=== PATIENT | male | born 1995 | race Caucasian/White ===

== ENCOUNTER 2019-03-04 20:53 | Emergency (ER) | payer BC ==
[2019-03-04] MEDS ORDERED: Lidocaine 1% 10 ML MDV INJECT ONE (21:32)
[2019-03-04] MEDS ORDERED: Lidocaine 1% 20 ML MDV INJECT ONE (21:39)
--- NOTE | 2019-03-04 21:45 | EDM.PDOC ---
ED HPI GENERAL MEDICAL PROBLEM - General Chief Complaint: Upper Extremity Injury/Pain Stated Complaint: LACERATION TO ARM Time Seen by Provider: 03/04/19 20:59 Source of Information: Reports: Patient, RN Notes Reviewed History Limitations: Reports: No Limitations - History of Present Illness INITIAL COMMENTS - FREE TEXT/NARRATIVE: Patient is a 23-year-old male who presents to the ED for the evaluation of a laceration to his right forearm. The patient states that he was at a friend's watching basketball and he went to [facility] and he caught his right forearm on a nail sticking out. The patient has a very large linear laceration to his right forearm. The patient noted that there was quite a bit of bleeding, he did put a sort of pressure dressing on it before he came to the ER. The patient notes he is right-handed. He states he is up-to-date on his tetanus booster. He does not have any numbness or tingling into his right hand, and has full range of motion and strength of his right hand. - Related Data Allergies Allergy/AdvReac Type Severity Reaction Status Date / Time No Known Allergies Allergy Verified 03/04/19 20:58 Home Meds: Home Meds Dextroamphetamine/Amphetamine [Adderall 20 mg Tablet] 20 mg PO DAILY 03/04/19 [ History] Doxycycline [Vibramycin] 100 mg PO BID #20 tab 03/04/19 [Rx] Past Medical History - Past Health History Medical/Surgical History: Denies Medical/Surgical History Social & Family History - Tobacco Use Smoking Status *Q: Current Every Day Smoker Years of Tobacco use: 5 Packs/Tins Daily: 0.5 - Recreational Drug Use Recreational Drug Use: No Review of Systems - Review of Systems Review Of Systems: See Below Constitutional: Reports: No Symptoms Eyes: Reports: No Symptoms Ears: Reports: No Symptoms Nose: Reports: No Symptoms Mouth/Throat: Reports: No Symptoms Respiratory: Reports: No Symptoms Cardiovascular: Reports: No Symptoms GI/Abdominal: Reports: No Symptoms Genitourinary: Reports: No Symptoms Musculoskeletal: Reports: No Symptoms Skin: Reports: Wound (linear laceration to Right forearm, roughly 7.5cm in length) ED EXAM, GENERAL - Physical Exam Exam: See Below Exam Limited By: No Limitations General Appearance: Alert, WD/WN, No Apparent Distress Respiratory/Chest: No Respiratory Distress, Lungs Clear, Normal Breath Sounds, No Accessory Muscle Use, Chest Non-Tender Cardiovascular: Normal Peripheral Pulses, Regular Rate, Rhythm, No Murmur Extremities: Normal Inspection, Normal Range of Motion, Normal Capillary Refill Neurological: Alert, Oriented, Normal Cognition, Normal Reflexes, No Motor/ Sensory Deficits Psychiatric: Normal Affect, Normal Mood Skin Exam: Warm, Dry, Normal Color, No Rash, Wound/Incision (Roughly 7.5 cm linear laceration that is deep enough to see the muscles separations in the forearm) ED TRAUMA EXTREMITY PROCEDURES - Laceration/Wound Repair Right Distal Arm Lac/Wound Length In cm: 7.5 Appearance: Subcutaneous, Muscle, Linear, Clean Distal NVT: Neuro & Vascular Intact, No Tendon Injury Anesthetic Type: Local Local Anesthesia - Lidocaine (Xylocaine): 1% Plain Local Anesthetic Volume: Other (13) Skin Prep: Chlorhexidine (Hibiciens) Saline Irrigation (cc's): 250 Exploration/Debridement/Repair: Wound Explored, In a Bloodless Field, Explored to Base Closed With: Sutures Suture Size: 3-0 # of Sutures: 14 Suture Type: Prolene, Interrupted, Simple Suture Size: 3-0 # of Sutures: 7 Repaired With: Vicryl Sterile Dressing Applied: Nurse Tetanus Status Addressed: Yes Complications: No Course - Vital Signs Last Recorded V/S: Last Vital Signs Temp 98.0 F 03/04/19 20:59 Pulse 102 H 03/04/19 20:59 Resp BP 140/92 H 03/04/19 20:59 Pulse Ox 98 03/04/19 20:59 - Orders/Labs/Meds Meds: Medications Discontinued Medications Generic Name Dose Route Start Last Admin Trade Name German PRN Reason Stop Dose Admin Lidocaine HCl 10 ml 03/04/19 21:32 Xylocaine 1% INJECT 03/04/19 21:33 ONETIME ONE Lidocaine HCl 20 ml 03/04/19 21:39 03/04/19 23:22 Xylocaine 1% INJECT 03/04/19 21:40 Not Given ONETIME ONE Lidocaine HCl Confirm 03/04/19 22:04 03/04/19 23:22 Xylocaine 1% Administered 03/04/19 22:05 Not Given Dose 50 ml .ROUTE .STK-MED ONE Lidocaine HCl 50 ml 03/04/19 22:00 03/04/19 22:10 Xylocaine 1% INJECT 03/04/19 22:01 50 ml STAT STA Administration Departure - Departure Time of Disposition: 23:03 Disposition: Home, Self-Care 01 Condition: Fair Clinical Impression: Laceration of right forearm Qualifiers: Encounter type: initial encounter Qualified Code(s): S51.811A - Laceration without foreign body of right forearm, initial encounter - Discharge Information *PRESCRIPTION DRUG MONITORING PROGRAM REVIEWED*: No *COPY OF PRESCRIPTION DRUG MONITORING REPORT IN PATIENT WANDER: No Prescriptions: Doxycycline [Vibramycin] 100 mg PO BID #20 tab Instructions: Stitches, Richard, or Adhesive Wound Closure, [id number] Referrals: Casper Oseguera Jr, MD [Primary Care Provider] - Forms: ED Department Discharge Additional Instructions: You have been evaluated in the ED for your laceration. Sutures will need to stay in for 10 days (03/14/19). You may return to the ED or clinic for removal. Please keep this area clean and dry, you may cleanse with regular soap and water. No vigorous scrubbing. Please take the doxycycline as directed for 10 days to provide you further coverage so that you do not develop an infection in your wound. Please return to ED if your symptoms change or worsen.
[2019-03-04] MEDS ORDERED: Lidocaine 1% 50 ML MDV INJECT STA (22:00)
[2019-03-04] MEDS ORDERED: Lidocaine 1% 50 ML MDV ONE (22:04)
== END 2019-03-04 23:20 | disposition home or self-care (01) ==
LOC: JD.ED 20:53
DX: S51.811A Laceration without foreign body of right forearm, initial encounter (principal); F17.210 Nicotine dependence, cigarettes, uncomplicated; Z79.899 Other long term (current) drug therapy; W22.8XXA Striking against or struck by other objects, initial encounter
CPT/HCPCS: 12002; 99282; J2001; 12032; 99283